=== PATIENT | female | born 1995 | race Caucasian/White ===

== ENCOUNTER 2016-11-09 10:23 | Observation (INO) | payer MEDICAID, OTHER ==
[~2016-11-09] VITALS: Ht 162.6 cm; Wt 78.0 kg
[2016-11-09] MEDS ORDERED: PREN-380 PO (10:56)
== END 2016-11-09 14:20 | disposition home or self-care (01) ==
LOC: MLD 10:23
PROVIDERS: ADMIT Obstetrics & Gynecology; ATTEND Obstetrics & Gynecology
DX: O26.893 Other specified pregnancy related conditions, third trimester (principal); N89.8 Other specified noninflammatory disorders of vagina; O48.0 Post-term pregnancy; Z3A.40 40 weeks gestation of pregnancy
CPT/HCPCS: 59025; 76805; 81000; G0378; Q0092

== ENCOUNTER 2016-11-12 15:22 | Inpatient (IN) | payer OTHER ==
[~2016-11-12] VITALS: Ht 162.6 cm; Wt 79.8 kg
[~2016-11-12 15:22] MED LIST: PREN-380 PO
[2016-11-12 16:14] VITALS: BP 101/65
[2016-11-12] MEDS ORDERED: LACTATED RINGERS 1,000 ML IV SCH (16:25)
[2016-11-12] MEDS ORDERED: TERBUTALINE 1 MG/ML VIAL SUBQ SCH (16:25)
[2016-11-12] MEDS ORDERED: TERBUTALINE 1 MG/ML VIAL SUBQ ONE (16:34)
[2016-11-12 18:17] LABS: BASOPHILS # (AUTO) 0.1 K/uL (0.00-0.22); BASOPHILS % (AUTO) 0.8 % (0.0-2.0); EOSINOPHILS # (AUTO) 0.4 K/uL (0-0.4); EOSINOPHILS % (AUTO) 2.7 % (0.0-4.0); HEMOGLOBIN 12.7 g/dL (12.0-16.0); LYMPHOCYTES # (AUTO) 2.2 K/uL (2.5-16.5); LYMPHOCYTES % (AUTO) 14.4 % (20.5-51.1); MEAN CORPUSCULAR HEMOGLOBIN 31 pg (27-31); MEAN CORPUSCULAR HGB CONC 34 g/dL (33-37); MEAN CORPUSCULAR VOLUME 92 fL (80-94); MONOCYTES # (AUTO) 0.9 K/uL (0.8-1.0); MONOCYTES % (AUTO) 5.9 % (1.7-9.3); NEUTROPHILS # (AUTO) 11.5 K/uL (1.8-7.7); NEUTROPHILS % (AUTO) 76.2 % (42.2-75.2); PLATELET COUNT (AUTO) 425 K/uL (140-450); RED BLOOD CELL COUNT(AUTO) 4.11 MIL/uL (4.20-5.40); RED CELL DISTRIBUTION WIDTH 12.6 % (11.6-13.7); WHITE BLOOD COUNT (AUTO) 15.1 K/uL (4.5-11.0)
[2016-11-12] MEDS ORDERED: AMPICILLIN 2,000 MG VIAL ONE (18:29)
[2016-11-12] MEDS ORDERED: METOCLOPRAMIDE 10 MG/2 ML INJ VIAL IVP SCH (19:30)
[2016-11-12] MEDS ORDERED: CITRIC ACID/SODIUM CITRATE 30 ML UDC PO SCH (19:30)
[2016-11-12 19:45] LABS: APPEARANCE,URINE HAZY (CLEAR); BILIRUBIN,URINE NEGATIVE (NEGATIVE); BLOOD, URINE 2+ (NEGATIVE); COLOR,URINE YELLOW (YELLOW); LEUKOCYTE ESTERASE ,URINE 3+ (NEGATIVE); NITRITE, URINE NEGATIVE (NEGATIVE); PH,URINE 7.5 (5.0-9.0); PROTEIN,URINE NEGATIVE (NEGATIVE); UGLUCOSE NEGATIVE (NEGATIVE)
[2016-11-12 19:49] LABS: BACTERIA,URINE 1+ /HPF (None Seen); RBC,URINE 40-60 /HPF (0-5)
[2016-11-12] MEDS ORDERED: AMPICILLIN 2,000 MG in NACL 0.9% 100 ML IV SCH (20:00)
[2016-11-12] MEDS ORDERED: ceFAZolin 1,000 MG VIAL ONE (22:05)
[2016-11-12] MEDS ORDERED: OXYTOCIN 10 UNITS/ML VIAL ONE ×2 (22:06→22:21)
[2016-11-12] MEDS ORDERED: DEXAMETHASONE 4 MG/ML VIAL ONE (22:06)
[2016-11-12] MEDS ORDERED: ONDANSETRON 4 MG/2 ML VIAL ONE (22:06)
[2016-11-12] MEDS ORDERED: BUPIVACAINE-MPF 0.75% 10 ML VIAL INJ ONE (22:06)
[2016-11-12] MEDS ORDERED: MORPHINE PRES FREE 10 MG/10 ML AMP IV ONE (22:12)
[2016-11-12] MEDS ORDERED: NALOXONE 0.4 MG/ML VIAL ONE (22:15)
[2016-11-12] MEDS ORDERED: diphenhydrAMINE 50 MG/ML VIAL ONE (22:20)
[2016-11-12] MEDS ORDERED: OXYTOCIN 20 UNITS/LR PREMIX 1,000 ML IV ONE (22:21)
[2016-11-12] MEDS ORDERED: diphenhydrAMINE 50 MG/ML VIAL IVP PRN (22:30)
[2016-11-12] MEDS ORDERED: KETOROLAC 30 MG/ML VIAL IVP PRN (22:30)
[2016-11-12] MEDS ORDERED: OXYTOCIN 20 UNITS/LR PREMIX 1,000 ML IV SCH (22:30)
[2016-11-12] MEDS ORDERED: ONDANSETRON 4 MG/2 ML VIAL IVP PRN (22:30)
[2016-11-12] MEDS ORDERED: NALOXONE 0.4 MG/ML VIAL IVP PRN ×2 (22:30)
[2016-11-12] MEDS ORDERED: ceFAZolin 1,000 MG VIAL IVP ONE (22:45)
[2016-11-13] MEDS ORDERED: MEASLES, MUMPS, AND RUBELLA 1 VIAL SQVAC PRN (00:20)
[2016-11-13] MEDS ORDERED: HYDROmorphone 1 MG/ML AMP IVP PRN (00:20)
[2016-11-13] MEDS ORDERED: KETOROLAC 30 MG/ML VIAL IVP PRN (00:20)
[2016-11-13 08:42] LABS: HEMATOCRIT 32.6 % (36-48); HEMOGLOBIN 10.9 g/dL (12.0-16.0); MEAN CORPUSCULAR HEMOGLOBIN 31 pg (27-31); MEAN CORPUSCULAR HGB CONC 34 g/dL (33-37); MEAN CORPUSCULAR VOLUME 92 fL (80-94); PLATELET COUNT (AUTO) 413 K/uL (140-450); RED BLOOD CELL COUNT(AUTO) 3.54 MIL/uL (4.20-5.40); RED CELL DISTRIBUTION WIDTH 12.6 % (11.6-13.7)
[2016-11-13 08:57] LABS: WHITE BLOOD COUNT (AUTO) 23.4 K/uL (4.5-11.0)
[2016-11-13 08:58] LABS: BAND % (MANUAL) 5 % (0-8); LYMPHOCYTES % (MANUAL) 7 % (20-46); MONOCYTES % (MANUAL) 3 % (5-12); NEUTROPHILS % (MANUAL) 85 (43-65)
[2016-11-13] MEDS: OXYTOCIN 20 UNITS/LR PREMIX 1,000 ML IV SCH ×2 (09:05→17:28)
--- NOTE | 2016-11-13 10:03 | NUR ---
PATIENT HAS BEEN SCREENED AND CATEGORIZED LOW NUTRITION RISK. PATIENT WILL BE SEEN WITHIN 7 DAYS OF ADMISSION. 11/19/[address]
[2016-11-14] MEDS: IBUPROFEN 600 MG TAB PO PRN ×3 (01:09→18:29)
[2016-11-14] MEDS: oxyCODONE/APAP 5/325 MG 1 TAB TAB PO PRN (13:39)
[2016-11-14] MEDS ORDERED: oxyCODONE/APAP 5/325 MG 1 TAB TAB ONE (13:43)
[2016-11-15] MEDS: oxyCODONE/APAP 5/325 MG 1 TAB TAB PO PRN ×2 (02:48→17:28)
[2016-11-15] MEDS: SIMETHICONE 80 MG TAB.CHEW PO PRN ×2 (02:48→11:01)
[2016-11-15] MEDS ORDERED: BISACODYL 5 MG TABEC PO PRN (08:00)
[2016-11-15] MEDS ORDERED: SODIUM PHOSPHATE 118 ML ENEM RC PRN (08:00)
[2016-11-15] MEDS: DOCUSATE SODIUM 100 MG GELCAP PO PRN (11:02)
[2016-11-15] MEDS ORDERED: predniSONE 20 MG TAB PO SCH (21:00)
[2016-11-15] MEDS ORDERED: predniSONE 20 MG TAB ONE (21:55)
[2016-11-16] MEDS: oxyCODONE/APAP 5/325 MG 1 TAB TAB PO PRN (05:50)
[2016-11-16] MEDS ORDERED: predniSONE 20 MG TAB PO SCH (08:00)
[2016-11-16] MEDS ORDERED: predniSONE 10 MG TAB PO SCH (08:11)
[2016-11-16] MEDS: TRIAMCINOLONE 0.1% CRM 15 GM TUBE TP SCH ×3 (08:41→16:40)
[2016-11-16] MEDS: DOCUSATE SODIUM 100 MG GELCAP PO PRN (16:44)
[2016-11-17] MEDS: oxyCODONE/APAP 5/325 MG 1 TAB TAB PO PRN (01:16)
[2016-11-17] MEDS: SIMETHICONE 80 MG TAB.CHEW PO PRN (01:17)
[2016-11-17] MEDS ORDERED: predniSONE 20 MG TAB PO SCH (08:00)
[2016-11-17] MEDS: TRIAMCINOLONE 0.1% CRM 15 GM TUBE TP SCH (08:51)
[2016-11-17] MEDS ORDERED: predniSONE 10 MG TAB PO SCH (09:00)
== END 2016-11-17 16:30 | disposition home or self-care (01) | DRG 540 ==
LOC: MLD 15:22 → OBSVTOIN 16:50 → MFCC 11-13 00:30
PROVIDERS: ADMIT Obstetrics & Gynecology; ATTEND Obstetrics & Gynecology
PROC: 10D00Z1 Extraction of Products of Conception, Low, Open Approach (ICD-10-PCS; principal; 2016-11-12 22:00)
DX: O32.1XX0 Maternal care for breech presentation, not applicable or unspecified (principal); O99.824 Streptococcus B carrier state complicating childbirth; Z83.3 Family history of diabetes mellitus; Z37.0 Single live birth; Z3A.39 39 weeks gestation of pregnancy; Z28.21 Immunization not carried out because of patient refusal
CPT/HCPCS: 36415; 76815; 81001; 85025; 86850; 86886; 86900; 86901; 87070; 87086; G0378; J0290; J0690; J1100; J1200; J1885; J2270; J2310; J2405; J2590; J2790; J3105; J3490; J7060; J7120; J7512; Q0092

== ENCOUNTER 2020-01-04 10:10 | Observation (INO) | payer OTHER ==
[~2020-01-04] VITALS: Ht 162.6 cm; Wt 71.7 kg
== END 2020-01-04 13:40 | disposition home or self-care (01) ==
LOC: MLD 10:10
PROVIDERS: ADMIT Obstetrics & Gynecology; ATTEND Obstetrics & Gynecology
DX: Z03.818 Encounter for observation for suspected exposure to other biological agents ruled out (principal); O62.9 Abnormality of forces of labor, unspecified; O34.219 Maternal care for unspecified type scar from previous cesarean delivery; Z3A.39 39 weeks gestation of pregnancy
CPT/HCPCS: 76815; G0378; Q0092; U0003; 59025